=== PATIENT | female | born 1990 | race Two or more races ===

== ENCOUNTER 2017-10-08 09:34 | Emergency (ER) | payer OTHER ==
[~2017-10-08] VITALS: Ht 170.2 cm; Wt 79.4 kg
[2017-10-08 09:44] VITALS: BP 125/65
[2017-10-08] MEDS ORDERED: TDAP [DIPH/PERTUSSIS/TET] 0.5 ML VIAL IM ONE (10:15)
[2017-10-08] MEDS: TDAP [DIPH/PERTUSSIS/TET] 0.5 ML VIAL IM ONE (10:20)
--- NOTE | 2017-10-08 10:20 | NUR ---
finger splint applied.
== END 2017-10-08 10:22 | disposition home or self-care (01) ==
LOC: ER 09:36
DX: S61.215A Laceration without foreign body of left ring finger without damage to nail, initial encounter (principal); X58.XXXA Exposure to other specified factors, initial encounter; Y93.89 Activity, other specified; Y92.89 Other specified places as the place of occurrence of the external cause; Y99.8 Other external cause status
CPT/HCPCS: 90715; A4606; A6402; Z7610